=== PATIENT | male | born 1940 | race Caucasian/White ===

== ENCOUNTER 2018-05-15 13:46 | Emergency (ER) | payer MEDICARE, OTHER, SELFPAY ==
[2018-05-15 14:23] VITALS: BP 122/63; PULSE 60; RESP 16; TEMP 37; O2SAT 93
--- NOTE | 2018-05-15 14:25 | ED.GENADUL_ITS ---
Discharge Plan Disposition Patient Disposition: HOME Condition: Stable Discharge Details Chief Complaint: ThroatFB Clinical Impression: Choking episode Primary Care Provider: Nakul Phillips ED Provider: Keo Yee Home Meds and New Rx's Prescriptions: Continued atorvastatin [Lipitor] 20 MG tablet 80 mg DAILY RF: 0 amlodipine 5 MG tablet 7.5 mg DAILY RF: 0 aspirin [Aspir-81] 81 MG tablet,delayed release (DR/EC) 81 mg DAILY RF: 0 alprazolam 0.5 MG tablet 0.5 mg TID PRN RF: 0 furosemide [Lasix] 20 MG tablet 20 mg DAILY RF: 0 clopidogrel [Plavix] 75 mg Tablet 75 g PO DAILY RF: 0 acetaminophen [Tylenol Arthritis Pain] 650 mg Tablet Extended Release 650 mg PO BID RF: 0 No Action Centrum Men 8 mg iron- 200 mcg-600 mcg Tablet 1 tab PO DAILY RF: 0 Discharge Instructions Additional Instructions: if you have difficulty swallowing liquids, fevers or difficulty breathing return to the emergency department. Otherwise follow up with your primary care provider as needed Medical Decision Making Pt and son report that the patient choked on a mucinex pill and coughed it up and brought him here after for an eval. Patient has no complaints at this time, is speaking and swallowing without issues, has normal oropharynx, midline uvula, no pain over hyoid or restricted neck movements. He is drinking water here without issues. Doubt retained foreign body or other abnormalities such as rpa, motorized squad captain, epiglotitis and do not feel any imaging indicated. He will f/u as scheduled with pcp tomorrow and return precautions given Differential Diagnosis pill esophagitis, choking episode HPI General Mode of arrival: wheelchair . Date/Time Provider Initiated Documentation: 05/15/18 13:47 . Limitations to Documentation: no limitations . Information obtained by: patient and family . History of Present Illness 77 year old M presents to the emergency department with the chief complaint of choked on a pill, described as mild, Patient started experiencing this hour(s) (1) and it has been now resolved. Patient notes no other symptoms.. Related Data Home Medications Medication Instructions Recorded Confirmed alprazolam 0.5 mg TID PRN 03/04/14 05/15/18 amlodipine 7.5 mg DAILY 03/04/14 05/15/18 aspirin [Aspir-81] 81 mg DAILY 03/04/14 05/15/18 atorvastatin [Lipitor] 80 mg DAILY 03/04/14 05/15/18 furosemide [Lasix] 20 mg DAILY 03/04/14 05/15/18 acetaminophen [Tylenol Arthritis 650 mg PO BID 05/15/18 05/15/18 Pain] clopidogrel [Plavix] 75 g PO DAILY 05/15/18 05/15/18 mv,Ca,ace-zhif-YV-lycopene 1 tab PO DAILY 05/15/18 05/15/18 [Centrum Men] Allergies Allergy/AdvReac Type Severity Reaction Status Date / Time codeine AdvReac Unverified 05/15/18 14:30 nuts Allergy Uncoded 05/15/18 14:30 Review of Systems Review of Systems All systems reviewed & are unremarkable except as noted in HPI and below Constitutional Denies chills and Denies fever(s) ENT Denies change in voice Cardiovascular Denies chest pain and Denies dyspnea Respiratory Denies dyspnea Gastrointestinal Denies abdominal pain, Denies nausea and Denies vomiting PFSH Social History Smoking/Tobacco Use Status: Current every day Exam Const General: no acute distress Orientation: alert HENMT Head: normal to inspection Ears: external ears normal General nose exam: external nose normal Mouth: moist mucous membranes Eyes General: appearance normal, both eyes and all related structures Neck Neck: normal visual inspection Resp Effort & Inspection: normal respiratory effort and able to speak in complete sentences Cardio Rate: regular rate Skin General skin exam: no rashes or lesions noted Neuro General: alert and oriented x3 Extrem General: normal to inspection Psych Mental Status: mental status grossly normal
== END 2018-05-15 14:43 | disposition home or self-care (01) ==
PROVIDERS: Emergency Provider Emergency Medicine; PCP Family Medicine Adult Medicine
DX: R09.89 Other specified symptoms and signs involving the circulatory and respiratory systems (principal)
CPT/HCPCS: 99281